=== PATIENT | female | born 1970 | race Caucasian/White ===

== ENCOUNTER 2021-02-05 20:02 | Emergency (ER) | payer OTHER ==
[2021-02-05] MEDS ORDERED: diphenhydrAMINE 50 MG/ML VIAL ONE (20:47)
[2021-02-05] MEDS ORDERED: Magnesium 2 GM/50 ML BAG (IN WATER) ONE (20:48)
[2021-02-05] MEDS ORDERED: Metoclopramide HCl 10 MG/2 ML VIAL ONE (20:48)
[2021-02-05] MEDS ORDERED: Acetaminophen 500 MG TAB ONE (20:48)
[2021-02-05 21:33] LABS: #Eosinphils 0.3 10x3/uL (0.0-0.5); #Monocytes 0.7 10x3/uL (0.0-1.1); #Neutrophils 4.5 10x3/uL (1.5-8.4); %Basophils 0.5 % (0.0-2.0); %Eosinophils 3.4 % (0.0-6.0); %Lymphocytes 26.6 % (18.0-47.0); %Monocytes 9.1 % (0.0-10.0); %Neutrophils 60.1 % (40.0-75.0); Hemoglobin 11.4 g/dL (12.0-15.5); Mean Corpuscular HGB CONC 32.3 g/dL (32.0-36.0); Mean Corpuscular Hemoglobin 27.4 pg (27.0-33.0); Mean Corpuscular Volume 84.9 fl (81.6-98.3); Mean Platelet Volume 9.9 fl (7.4-10.4); Platelet Count 289 10x3/uL (150-450); RBC Distribution Width 13.4 % (11.5-14.5); Red Blood Cell (RBC) Count 4.16 10x6/uL (3.90-5.03); White Blood Cell (WBC) Count 7.5 10x3/uL (3.5-10.5)
[2021-02-05 21:50] LABS: ALT (SGPT) 15 U/L (8-55); AST (SGOT) 15 U/L (5-34); Albumin 3.8 g/dL (3.5-5.0); Alkaline Phosphatase 61 U/L (40-110); Anion Gap 13 mmol/L (10-20); BUN (Urea Nitrogen) 10 mg/dL (7.0-18.7); Bilirubin, Total 0.2 mg/dL (0.2-1.2); Calc. Creatinine Clearance 0 mL/min (70-130); Calcium 8.2 mg/dL (7.8-10.44); Carbon Dioxide 24 mmol/L (22-29); Chloride 107 mmol/L (98-107); Globulin 2.6 g/dL (2.4-3.5); Glucose 93 mg/dL (70-105); Lipase 71 U/L (8-78); Potassium 3.9 mmol/L (3.5-5.1); Protein, Total 6.4 g/dL (6.0-8.3); Sodium 140 mmol/L (136-145)
[2021-02-05] MEDS ORDERED: methylPREDNISolone Sod Succ/PF 125 MG/2 ML VIAL ONE (22:10)
[2021-02-05] MEDS ORDERED: Ketorolac Tromethamine 30 MG/ML VIAL ONE (22:10)
[2021-02-05] MEDS ORDERED: VALPROATE SODIUM IVPB SCH (22:30)
[2021-02-05] MEDS ORDERED: SODIUM CHLORIDE 0.9% IVPB SCH (22:30)
[2021-02-05] MEDS ORDERED: Ketamine 50 MG/ML (10ML VIAL) ONE (23:19)
== END 2021-02-06 00:35 | disposition home or self-care (01) ==
LOC: CSHERS 20:02
DX: R51.9 Headache, unspecified (principal); Z86.16 Personal history of COVID-19
CPT/HCPCS: 70450; 80053; 83690; 85025; 85379; 96365; 96368; 96375; J1200; J1885; J2765; J2930; J3475; J3490

== ENCOUNTER 2021-02-23 16:52 | Emergency (ER) | payer OTHER ==
[2021-02-23] MEDS ORDERED: Proparacaine 0.5% Opth 15 ML BOT ONE (18:18)
[2021-02-23] MEDS ORDERED: Fluorescein Opthalmic Strip ONE (18:23)
== END 2021-02-23 19:10 | disposition home or self-care (01) ==
LOC: CSHERS 16:52
DX: H20.00 Unspecified acute and subacute iridocyclitis (principal); Z86.16 Personal history of COVID-19; G43.909 Migraine, unspecified, not intractable, without status migrainosus; Z79.899 Other long term (current) drug therapy
CPT/HCPCS: 99283

== ENCOUNTER 2022-04-29 14:42 | Outpatient (CLI) | payer BC | END 2022-04-29 14:43 | disposition home or self-care (01) | LOC: CSHULT 14:42 | PROVIDERS: ATTEND Nurse Practitioner Family | DX: E07.89 Other specified disorders of thyroid (principal); E04.2 Nontoxic multinodular goiter | CPT/HCPCS: 76536 ==

== ENCOUNTER 2022-11-11 17:16 | Emergency (ER) | payer BC, OTHER ==
[2022-11-11] MEDS ORDERED: Ondansetron PF 4 MG/2 ML Vial ONE ×2 (17:57→21:38)
[2022-11-11] MEDS ORDERED: Morphine 4 MG/ML VIAL ONE (17:57)
[2022-11-11 17:58] LABS: #Basophils 0.1 10x3/uL (0.0-0.2); #Eosinphils 0.1 10x3/uL (0.0-0.5); #Monocytes 1.5 10x3/uL (0.0-1.1); #Neutrophils 15.1 10x3/uL (1.5-8.4); %Basophils 0.4 % (0.0-2.0); %Eosinophils 0.4 % (0.0-6.0); %Lymphocytes 14.2 % (18.0-47.0); %Monocytes 7.8 % (0.0-10.0); %Neutrophils 76.6 % (40.0-75.0); Hemoglobin 14.7 g/dL (12.0-15.5); Mean Corpuscular HGB CONC 33.4 g/dL (32.0-36.0); Mean Corpuscular Hemoglobin 27.1 pg (27.0-33.0); Mean Platelet Volume 9.7 fl (7.4-10.4); Platelet Count 456 10x3/uL (150-450); RBC Distribution Width 14.9 % (11.5-14.5); Red Blood Cell (RBC) Count 5.43 10x6/uL (3.90-5.03); White Blood Cell (WBC) Count 19.7 10x3/uL (3.5-10.5)
[2022-11-11 18:14] LABS: ALT (SGPT) 21 U/L (8-55); AST (SGOT) 20 U/L (5-34); Albumin 4.9 g/dL (3.5-5.0); Alkaline Phosphatase 74 U/L (40-110); Anion Gap 17 mmol/L (10-20); BUN (Urea Nitrogen) 18 mg/dL (9.8-20.1); Bilirubin, Total 0.7 mg/dL (0.2-1.2); Calc. Creatinine Clearance 0 mL/min (70-130); Calcium 10.5 mg/dL (7.8-10.44); Carbon Dioxide 24 mmol/L (22-29); Chloride 99 mmol/L (98-107); Estimated GFR 61; Globulin 3.6 g/dL (2.4-3.5); Glucose 113 mg/dL (70-105); Lipase 79 U/L (8-78); Potassium 3.3 mmol/L (3.5-5.1); Protein, Total 8.5 g/dL (6.0-8.3); Sodium 137 mmol/L (136-145)
[2022-11-11] MEDS ORDERED: Ketorolac Tromethamine 30 MG/ML VIAL ONE (18:22)
[2022-11-11] MEDS ORDERED: Piperacillin/Tazobactam 3.375 GM VIAL ONE (18:22)
[2022-11-11] MEDS ORDERED: Fentanyl 100 MCG/2 ML VIAL ONE (19:17)
[2022-11-11] MEDS ORDERED: Lidocaine Viscous Sol 2% 15 ml UD Cup ONE (19:26)
[2022-11-11] MEDS ORDERED: Mag-Al Plus 1200 MG/1200 MG/120 MG/30 ML UDCUP ONE (19:26)
[2022-11-11 21:08] LABS: Bilirubin Neg (Negative); Blood, Urine 10 (Negative); Clarity Cloudy (Clear); Glucose, Urine (Dipstick) Normal (Negative); Ketone, Urine Negative (Negative); Leukocyte 25 (Negative); Nitrite Negative (Negative); Protein, Urine (Dipstick) 30 mg/dl (Neg-Trace); Urobilinogen Normal mg/dL (Less than 2)
[2022-11-11 21:23] LABS: RBC/HPF 0-3 HPF (0-3); Squamous Epithelial 0-3 HPF (0-3); WBC/HPF 0-3 HPF (0-3)
[2022-11-11 21:24] LABS: Bacteria/HPF 2+ HPF (None Seen); Mucous/LPF 2+ LPF (<2+)
[2022-11-11] MEDS ORDERED: Famotidine 20 MG TAB ONE (21:39)
[2022-11-11] MEDS ORDERED: Sucralfate 1 GM/10 ML UDCUP ONE (21:41)
== END 2022-11-11 21:51 | disposition home or self-care (01) ==
LOC: CSHERS 17:16
DX: R10.13 Epigastric pain (principal); R11.2 Nausea with vomiting, unspecified; R19.7 Diarrhea, unspecified
CPT/HCPCS: 74176; 80053; 81003; 81015; 83605; 83690; 84484; 85025; 93005; 96365; 96375; 96376; J1885; J2270; J2405; J2543; J3010

== ENCOUNTER 2022-12-16 10:52 | Emergency (ER) | payer BC ==
[2022-12-16 12:10] LABS: #Monocytes 0.6 10x3/uL (0.0-1.1); #Neutrophils 4.6 10x3/uL (1.5-8.4); %Basophils 0.5 % (0.0-2.0); %Eosinophils 0.5 % (0.0-6.0); %Lymphocytes 27.3 % (18.0-47.0); %Monocytes 8.4 % (0.0-10.0); Hemoglobin 12.3 g/dL (12.0-15.5); Mean Corpuscular HGB CONC 32.3 g/dL (32.0-36.0); Mean Corpuscular Hemoglobin 26.6 pg (27.0-33.0); Mean Corpuscular Volume 82.3 fl (81.6-98.3); Mean Platelet Volume 10.1 fl (7.4-10.4); Platelet Count 332 10x3/uL (150-450); RBC Distribution Width 14.6 % (11.5-14.5); Red Blood Cell (RBC) Count 4.63 10x6/uL (3.90-5.03); White Blood Cell (WBC) Count 7.4 10x3/uL (3.5-10.5)
[2022-12-16] MEDS ORDERED: Ondansetron PF 4 MG/2 ML Vial ONE (12:32)
[2022-12-16 13:51] LABS: ALT (SGPT) 23 U/L (8-55); AST (SGOT) 23 U/L (5-34); Albumin 3.9 g/dL (3.5-5.0); Alkaline Phosphatase 54 U/L (40-110); Anion Gap 12 mmol/L (10-20); BUN (Urea Nitrogen) 6 mg/dL (9.8-20.1); Bilirubin, Total 0.4 mg/dL (0.2-1.2); Calc. Creatinine Clearance 0 mL/min (70-130); Calcium 9.3 mg/dL (7.8-10.44); Carbon Dioxide 27 mmol/L (22-29); Chloride 105 mmol/L (98-107); Estimated GFR 93; Globulin 2.3 g/dL (2.4-3.5); Glucose 90 mg/dL (70-105); Protein, Total 6.2 g/dL (6.0-8.3); Sodium 140 mmol/L (136-145)
[2022-12-16] MEDS ORDERED: Lorazepam 1 MG TAB ONE (14:03)
[2022-12-16 14:21] LABS: Troponin I Less than 0.010 ng/mL (< 0.028)
[2022-12-16] MEDS ORDERED: HYDROcodone/Acetaminophen 5/325 mg Tablet ONE (15:09)
[2022-12-16] MEDS ORDERED: Cyclobenzaprine 10 MG TAB ONE (15:09)
== END 2022-12-16 15:38 | disposition home or self-care (01) ==
LOC: CSHERS 10:52
DX: R07.89 Other chest pain (principal); K21.9 Gastro-esophageal reflux disease without esophagitis; Z86.16 Personal history of COVID-19
CPT/HCPCS: 36415; 71045; 80053; 84484; 85025; 93005; J2405

== ENCOUNTER 2022-12-20 17:22 | Observation (INO) | payer BC ==
[~2022-12-20 17:22] MED LIST: Iopamidol 370 76% 100 ML VIAL ONE
[2022-12-20] MEDS ORDERED: Aspirin Chewable 81 MG TAB ONE (17:47)
[2022-12-20] MEDS ORDERED: Lorazepam 2 MG/ML VIAL ONE ×2 (17:48→19:54)
[2022-12-20 18:20] LABS: #Eosinphils 0.1 10x3/uL (0.0-0.5); #Monocytes 0.6 10x3/uL (0.0-1.1); %Basophils 0.4 % (0.0-2.0); %Eosinophils 0.9 % (0.0-6.0); %Lymphocytes 24.9 % (18.0-47.0); %Monocytes 8.4 % (0.0-10.0); %Neutrophils 65.3 % (40.0-75.0); Hemoglobin 11.5 g/dL (12.0-15.5); Mean Corpuscular HGB CONC 31.8 g/dL (32.0-36.0); Mean Corpuscular Hemoglobin 26.2 pg (27.0-33.0); Mean Corpuscular Volume 82.5 fl (81.6-98.3); Mean Platelet Volume 10.1 fl (7.4-10.4); Platelet Count 314 10x3/uL (150-450); RBC Distribution Width 14.6 % (11.5-14.5); Red Blood Cell (RBC) Count 4.39 10x6/uL (3.90-5.03); White Blood Cell (WBC) Count 7.6 10x3/uL (3.5-10.5)
[2022-12-20] MEDS ORDERED: Ketorolac Tromethamine 30 MG/ML VIAL ONE (18:40)
[2022-12-20] MEDS ORDERED: Ondansetron PF 4 MG/2 ML Vial ONE (18:41)
[2022-12-20 18:44] LABS: ALT (SGPT) 24 U/L (8-55); AST (SGOT) 21 U/L (5-34); Albumin 4.1 g/dL (3.5-5.0); Alkaline Phosphatase 48 U/L (40-110); Anion Gap 14 mmol/L (10-20); BUN (Urea Nitrogen) 6 mg/dL (9.8-20.1); Bilirubin, Total 0.4 mg/dL (0.2-1.2); Calc. Creatinine Clearance 0 mL/min (70-130); Calcium 9.1 mg/dL (7.8-10.44); Carbon Dioxide 25 mmol/L (22-29); Chloride 108 mmol/L (98-107); Estimated GFR 101; Globulin 2.4 g/dL (2.4-3.5); Glucose 86 mg/dL (70-105); Lipase 65 U/L (8-78); Potassium 3.8 mmol/L (3.5-5.1); Protein, Total 6.5 g/dL (6.0-8.3); Sodium 143 mmol/L (136-145)
[2022-12-20] MEDS ORDERED: Senokot S 8.6-50 MG TAB PO PRN (21:27)
[2022-12-20] MEDS ORDERED: Guaifenesin DM 100-10/5 ML UDCUP PO PRN (21:27)
[2022-12-20] MEDS ORDERED: Calcium Carbonate 500 MG ChewTAB PO PRN (21:27)
[2022-12-20] MEDS ORDERED: Ondansetron PF 4 MG/2 ML Vial IVP PRN (21:27)
[2022-12-20] MEDS ORDERED: Zolpidem Tartrate 5 MG TAB PO PRN (21:27)
[2022-12-20] MEDS ORDERED: ALPRAZolam 0.5 MG TAB PO PRN (21:29)
[2022-12-20] MEDS ORDERED: Potassium Chloride 20 MEQ TAB PO SCH (22:00)
[2022-12-20] MEDS ORDERED: Metoprolol Tartrate 25 MG TAB PO SCH (22:00)
[2022-12-20] MEDS ORDERED: Morphine 2 MG/ML VIAL SLOW IVP SCH (22:30)
[2022-12-20] MEDS ORDERED: Morphine 2 MG/ML VIAL ONE (22:31)
[2022-12-20] MEDS ORDERED: Potassium Chloride 20 MEQ TAB ONE (22:31)
[2022-12-21 03:23] LABS: SARS-CoV-2 NAA Rapid Test Not Detected (NotDetected)
[2022-12-21] MEDS ORDERED: Acetaminophen 325 MG TAB ONE ×2 (03:54→13:01)
[2022-12-21] MEDS: Acetaminophen 325 MG TAB PO PRN ×2 (03:56→13:03)
[2022-12-21 04:04] LABS: CRP (Inflammatory) Less than 0.50 mg/dL (= or < 0.5); Magnesium 1.9 mg/dL (1.6-2.6)
[2022-12-21 04:06] LABS: Free T4 (Free Thyroxine) 0.79 ng/dL (0.70-1.48)
[2022-12-21] MEDS ORDERED: Metoprolol Tartrate 25 MG TAB ONE (08:37)
[2022-12-21] MEDS ORDERED: DULoxetine 20 MG CAP PO SCH (09:00)
[2022-12-21] MEDS: Metoprolol Tartrate 25 MG TAB PO SCH ×2 (09:10→22:08)
[2022-12-21] MEDS: DULoxetine 30 MG CAP PO SCH (09:10)
[2022-12-21] MEDS ORDERED: Mag-Al Plus 1200 MG/1200 MG/120 MG/30 ML UDCUP ONE (14:28)
[2022-12-21] MEDS ORDERED: Lidocaine Viscous Sol 2% 15 ml UD Cup ONE (14:28)
[2022-12-21] MEDS ORDERED: Lidocaine 2% Viscous Solution 20 ML, Aluminum & Magnesium Hydroxide 30 ML, Donnatal Eli... SSW SCH (14:45)
[2022-12-21] MEDS ORDERED: Levothyroxine Sodium 50 MCG TAB PO SCH (15:30)
[2022-12-21] MEDS ORDERED: Lidocaine 2% Viscous Solution 10 ML, Aluminum & Magnesium Hydroxide 30 ML SSW SCH (15:30)
[2022-12-21] MEDS ORDERED: Ondansetron PF 4 MG/2 ML Vial ONE (15:36)
[2022-12-21 18:21] VITALS: BMI 22.6
[2022-12-21] MEDS ORDERED: Amitriptyline HCl 25 MG TAB PO SCH (21:00)
[2022-12-21] MEDS ORDERED: Ketorolac Tromethamine 30 MG/ML VIAL IVP SCH (22:15)
[2022-12-22] MEDS ORDERED: Levothyroxine Sodium 50 MCG TAB PO SCH (06:00)
[2022-12-22] MEDS: Acetaminophen 325 MG TAB PO PRN (10:00)
[2022-12-22] MEDS: DULoxetine 30 MG CAP PO SCH (10:00)
[2022-12-22] MEDS: Metoprolol Tartrate 25 MG TAB PO SCH (10:02)
[2022-12-22] MEDS ORDERED: traMADol HCl 50 MG TAB PO SCH (12:00)
[2022-12-22 14:20] VITALS: BP 117/55; TEMP 98.3
== END 2022-12-22 16:15 | disposition home or self-care (01) ==
LOC: CSHERS 17:22 → INTOOBSV 21:37 → CSHERHOLD 21:37 → CSHTELE 12-21 17:44
PROVIDERS: ADMIT Student in an Organized Health Care Education/Training Program; ATTEND Family Medicine
DX: R07.89 Other chest pain (principal); R00.2 Palpitations; R06.02 Shortness of breath; J98.6 Disorders of diaphragm; K21.9 Gastro-esophageal reflux disease without esophagitis; R51.0 Headache with orthostatic component, not elsewhere classified; M79.7 Fibromyalgia; F41.9 Anxiety disorder, unspecified; F32.A Depression, unspecified; Z79.899 Other long term (current) drug therapy; Z87.891 Personal history of nicotine dependence; Z88.5 Allergy status to narcotic agent; Z20.822 Contact with and (suspected) exposure to COVID-19
CPT/HCPCS: 36415; 70450; 71275; 80053; 83690; 83735; 83880; 84439; 84443; 84484; 85025; 86140; 93005; 93306; 96372; 96374; 96375; 96376; G0378; J1650; J1885; J2060; J2272; J2405; Q9967; U0002

== ENCOUNTER 2023-02-18 16:56 | Emergency (ER) | payer BC ==
[~2023-02-18 16:56] MED LIST changes: +Iopamidol 300 61% 100 ML VIAL FS ONE; -Iopamidol 370 76% 100 ML VIAL ONE
[2023-02-18 18:32] LABS: #Basophils 0.1 10x3/uL (0.0-0.2); #Eosinphils 0.4 10x3/uL (0.0-0.5); #Monocytes 0.7 10x3/uL (0.0-1.1); #Neutrophils 6.9 10x3/uL (1.5-8.4); %Basophils 0.5 % (0.0-2.0); %Eosinophils 3.7 % (0.0-6.0); %Lymphocytes 19.8 % (18.0-47.0); %Monocytes 7.1 % (0.0-10.0); %Neutrophils 68.5 % (40.0-75.0); Hemoglobin 11.9 g/dL (12.0-15.5); Mean Corpuscular HGB CONC 32.5 g/dL (32.0-36.0); Mean Corpuscular Hemoglobin 27.4 pg (27.0-33.0); Mean Corpuscular Volume 84.3 fl (81.6-98.3); Mean Platelet Volume 10.2 fl (7.4-10.4); Platelet Count 331 10x3/uL (150-450); Red Blood Cell (RBC) Count 4.34 10x6/uL (3.90-5.03); White Blood Cell (WBC) Count 10.1 10x3/uL (3.5-10.5)
[2023-02-18 18:45] LABS: ALT (SGPT) 20 U/L (8-55); AST (SGOT) 25 U/L (5-34); Albumin 4.5 g/dL (3.5-5.0); Alkaline Phosphatase 76 U/L (40-110); Anion Gap 14 mmol/L (10-20); BUN (Urea Nitrogen) 6 mg/dL (9.8-20.1); Bilirubin, Total 0.3 mg/dL (0.2-1.2); Calc. Creatinine Clearance 0 mL/min (70-130); Calcium 9.3 mg/dL (7.8-10.44); Carbon Dioxide 23 mmol/L (22-29); Chloride 105 mmol/L (98-107); Estimated GFR 78; Globulin 2.9 g/dL (2.4-3.5); Glucose 91 mg/dL (70-105); Lipase 44 U/L (8-78); Potassium 3.7 mmol/L (3.5-5.1); Protein, Total 7.4 g/dL (6.0-8.3); Sodium 138 mmol/L (136-145)
[2023-02-18] MEDS ORDERED: Ondansetron PF 4 MG/2 ML Vial ONE (19:22)
[2023-02-18] MEDS ORDERED: Morphine 4 MG/ML VIAL ONE ×2 (19:22→22:21)
== END 2023-02-18 22:40 | disposition home or self-care (01) ==
LOC: CSHERS 16:56
DX: K52.9 Noninfective gastroenteritis and colitis, unspecified (principal); K21.9 Gastro-esophageal reflux disease without esophagitis
CPT/HCPCS: 36415; 74177; 80053; 83605; 83690; 85025; 86900; 86901; 96374; 96375; 96376; J2270; J2405; Q9967

== ENCOUNTER 2023-07-03 00:05 | Emergency (ER) | payer BC ==
[2023-07-03 01:05] LABS: #Basophils 0.1 10x3/uL (0.0-0.2); #Eosinphils 0.3 10x3/uL (0.0-0.5); #Monocytes 0.5 10x3/uL (0.0-1.1); #Neutrophils 4.6 10x3/uL (1.5-8.4); %Basophils 0.9 % (0.0-2.0); %Eosinophils 3.3 % (0.0-6.0); %Monocytes 5.9 % (0.0-10.0); %Neutrophils 53.4 % (40.0-75.0); Hemoglobin 11.2 g/dL (12.0-15.5); Mean Corpuscular Hemoglobin 26.7 pg (27.0-33.0); Mean Corpuscular Volume 83.5 fl (81.6-98.3); Mean Platelet Volume 9.4 fl (7.4-10.4); Platelet Count 335 10x3/uL (150-450); Red Blood Cell (RBC) Count 4.19 10x6/uL (3.90-5.03); White Blood Cell (WBC) Count 8.7 10x3/uL (3.5-10.5)
[2023-07-03 01:21] LABS: ALT (SGPT) 20 U/L (8-55); AST (SGOT) 26 U/L (5-34); Albumin 4.4 g/dL (3.5-5.0); Alkaline Phosphatase 73 U/L (40-110); Anion Gap 13 mmol/L (10-20); BUN (Urea Nitrogen) 5 mg/dL (9.8-20.1); Bilirubin, Total 0.3 mg/dL (0.2-1.2); Calc. Creatinine Clearance 0 mL/min (70-130); Calcium 9.5 mg/dL (7.8-10.44); Carbon Dioxide 24 mmol/L (22-29); Chloride 106 mmol/L (98-107); Estimated GFR 86; Globulin 2.8 g/dL (2.4-3.5); Glucose 90 mg/dL (70-105); Potassium 3.1 mmol/L (3.5-5.1); Protein, Total 7.2 g/dL (6.0-8.3); Sodium 140 mmol/L (136-145)
[2023-07-03 01:27] LABS: Troponin I 0.015 ng/mL (< 0.028)
[2023-07-03] MEDS ORDERED: Aspirin 325 mg Enteric Coated Tablet ONE (02:07)
== END 2023-07-03 03:35 | disposition home or self-care (01) ==
LOC: CSHERS 00:05
DX: R07.9 Chest pain, unspecified (principal); R60.0 Localized edema
CPT/HCPCS: 36415; 71045; 80053; 84484; 85025; 93005